=== PATIENT | male | born 1955 | race African-American/Black ===

== ENCOUNTER 2019-09-29 18:03 | Inpatient (IN) ==
[2019-09-29] MEDS ORDERED: cloNIDine 0.1 MG TABLET PO STA (18:45)
[2019-09-29 18:57] LABS: Basophils % 0.4 % (0.0-0.8); Eosinophils % 0.1 % (0.00-10.9); Hematocrit 47.5 VOL% (42.0-52.0); Hemoglobin 15.5 GM/DL (14.0-18.0); Immature Granulocytes % 0.3 %; Immature Granulocytes Absolute 0.02 #; Lymphocytes # 1.3 10*3/uL (1.4-4.0); Lymphocytes % 16.4 % (21.2-54.2); Mean Corpuscular HGB Conc 32.6 GM/DL (32-36); Mean Corpuscular Volume 87.2 FL (87-102); Mean Platelet Volume 9.6 FL (9.6-12.0); Monocytes % 7.1 % (1.7-12.7); Neutrophils % 75.7 % (38.7-73.9); Platelet Count 163 T/CUMM (130-400); Red Blood Count 5.45 MC/CUMM (3.8-5.5); Red Cell Distribution Width 12.8 % (9.3-17.3); White Blood Count 7.8 T/CUMM (4-12)
[2019-09-29 19:22] LABS: Alanine Aminotransferase 31 U/L (16-61); Albumin 3.3 G/DL (3.4-5.0); Alkaline Phosphatase 74 U/L (45-117); Aspartate Amino Transferase 28 U/L (0-37); Blood Urea Nitrogen 29 MG/DL (7-18); Calcium 9.4 MG/DL (8.5-10.1); Estimated Glom Filtration Rate 95 ML/MIN; Glucose 157 MG/DL (74-106); Osmolality,Calculated 291.1 MOS/KG (273-304); Total Protein 8.5 G/DL (6.4-8.3)
[2019-09-29] MEDS ORDERED: SODIUM CHLORIDE 0.9% 1,000 ML IV STA (20:20)
[2019-09-29] MEDS ORDERED: ADENOSINE 6 MG/2 ML VIAL ONE ×2 (20:30→20:33)
[2019-09-29] MEDS ORDERED: dilTIAZem Drip 125 MG/125 ML PREMIX IV ONE (20:35)
[2019-09-29] MEDS ORDERED: DILTIAZEM 50 MG/10 ML VIAL IV ONE (20:36)
[2019-09-29] MEDS: dilTIAZem Drip 125 MG/125 ML PREMIX IV SCH (20:39)
[2019-09-29] MEDS ORDERED: ADENOSINE 6 MG/2 ML VIAL IV STA ×2 (20:43)
[2019-09-29] MEDS ORDERED: DILTIAZEM 50 MG/10 ML VIAL IV STA (20:43)
[2019-09-29 21:17] LABS: Apearance,Urine Slightly Hazy (Clear); Bacteria,Urine Occasional /HPF (Few); Bilirubin,Urine Small mg/dL (Negative); Blood, Urine Small mg/dL (Negative); Glucose,Urine (UA) Negative (Negative); Granular Casts,Urine 1 /LPF (0-1); Hyaline Casts,Urine 3 /LPF (0-3); Ketones,Urine 20 mg/dL (Negative); Mucus,Urine Few /LPF (Occasional); Nitrite,Urine Negative (Negative); Protein,Urine 100 MG/DL; RBC,Urine 3 /HPF (0-4); Squamous Epithelial Cell,Urine Occasional /HPF (0-10); Urine Color Amber (Yellow); Urine Specific Gravity 1.031 (1.001-1.035); WBC,Urine 3 /HPF (0-6)
[2019-09-29 21:19] LABS: Barbiturates Screen,Urine Negative (Negative); Benzodiazepines Screen,Urine Negative (Negative); Cannabinoid Screen,Urine Negative (Negative); Opiate Screen,Urine Negative (Negative); Phencyclidine Screen,Urine Negative (Negative)
[2019-09-29 21:21] LABS: INR 1.2; PT Patient Result 12.3 SECS (9.8-11.9); Partial Thromboplastin Time 25.7 SECS (23.9-33.8)
[2019-09-29 21:26] LABS: CKMB % 2.3 %
[2019-09-30] MEDS ORDERED: DEXTROSE 50% 25 GM/50 ML SYRINGE IV PRN (02:12)
[2019-09-30] MEDS ORDERED: SODIUM CHLORIDE 0.9% 1,000 ML IV SCH (02:12)
[2019-09-30] MEDS ORDERED: ONDANSETRON 4 MG/2 ML VIAL IV PRN (02:12)
[2019-09-30] MEDS ORDERED: DOCUSATE SODIUM 100 MG CAPSULE PO PRN (02:12)
[2019-09-30] MEDS ORDERED: ACETAMINOPHEN 325 MG TABLET PO PRN (02:12)
[2019-09-30] MEDS ORDERED: GLUCAGON 1 MG VIAL IM PRN (02:12)
[2019-09-30] MEDS ORDERED: HEPARIN 5,000 UNIT/1 ML VIAL IV ONE (03:00)
[2019-09-30] MEDS: INSULIN LISPRO 100 UNIT/ML SUBCUT SCH ×4 (03:41→22:35)
[2019-09-30] MEDS: HEPARIN DRIP 25,000 UNITS/500 ML PREMIX IV SCH ×2 (04:37→19:39)
[2019-09-30 05:28] LABS: Basophils % 0.2 % (0.0-0.8); Eosinophils % 0.3 % (0.00-10.9); Hematocrit 46.1 VOL% (42.0-52.0); Hemoglobin 15.3 GM/DL (14.0-18.0); Immature Granulocytes % 0.3 %; Immature Granulocytes Absolute 0.02 #; Lymphocytes # 1.6 10*3/uL (1.4-4.0); Lymphocytes % 26.3 % (21.2-54.2); Mean Corpuscular HGB Conc 33.2 GM/DL (32-36); Mean Corpuscular Volume 87.6 FL (87-102); Mean Platelet Volume 10.6 FL (9.6-12.0); Monocytes % 6.7 % (1.7-12.7); Neutrophils % 66.2 % (38.7-73.9); Platelet Count 163 T/CUMM (130-400); Red Blood Count 5.26 MC/CUMM (3.8-5.5); White Blood Count 6.2 T/CUMM (4-12)
[2019-09-30 05:56] LABS: CKMB % 2.9 %
[2019-09-30 06:00] LABS: Troponin I 0.721 NG/ML (0.00-0.045)
[2019-09-30] MEDS ORDERED: ENOXAPARIN 40 MG/0.4 ML SYRINGE SUBCUT SCH (06:00)
[2019-09-30 06:50] LABS: Osmolality,Calculated 291.8 MOS/KG (273-304)
[2019-09-30 09:36] LABS: Troponin I 0.594 NG/ML (0.00-0.045)
[2019-10-01] MEDS: HEPARIN DRIP 25,000 UNITS/500 ML PREMIX IV SCH (03:00)
[2019-10-01 06:22] LABS: Basophils % 0.3 % (0.0-0.8); Eosinophils % 0.7 % (0.00-10.9); Hemoglobin 13.5 GM/DL (14.0-18.0); Immature Granulocytes % 0.2 %; Immature Granulocytes Absolute 0.01 #; Lymphocytes # 2.1 10*3/uL (1.4-4.0); Lymphocytes % 36.6 % (21.2-54.2); Mean Corpuscular HGB Conc 32.9 GM/DL (32-36); Mean Corpuscular Volume 87.2 FL (87-102); Mean Platelet Volume 10.4 FL (9.6-12.0); Monocytes % 7.7 % (1.7-12.7); Neutrophils % 54.5 % (38.7-73.9); Platelet Count 158 T/CUMM (130-400); Red Cell Distribution Width 12.6 % (9.3-17.3); White Blood Count 5.8 T/CUMM (4-12)
[2019-10-01 06:49] LABS: Calcium 8.5 MG/DL (8.5-10.1); Osmolality,Calculated 288.8 MOS/KG (273-304)
[2019-10-01] MEDS: INSULIN LISPRO 100 UNIT/ML SUBCUT SCH ×4 (07:47→20:20)
[2019-10-01 09:18] LABS: Immunoglobulin A (Chem) 336 MG/DL (70-400); Immunoglobulin G (Chem) 1960 MG/DL (700-1600); Immunoglobulin M (Chem) 86 MG/DL (40-230)
[2019-10-01 09:30] LABS: Total Volume,Urine 500 ML (400-2000)
[2019-10-01] MEDS: dilTIAZem Drip 125 MG/125 ML PREMIX IV SCH ×2 (09:31→20:19)
[2019-10-01 09:50] LABS: Total Protein 24 Hr Ur Result 240 MG/24HR (0-149.1)
[2019-10-02 05:33] LABS: Basophils % 0.2 % (0.0-0.8); Eosinophils # 0.1 10*3/uL (0.0-0.87); Eosinophils % 1.8 % (0.00-10.9); Hematocrit 41.8 VOL% (42.0-52.0); Hemoglobin 13.4 GM/DL (14.0-18.0); Immature Granulocytes % 0.2 %; Immature Granulocytes Absolute 0.01 #; Lymphocytes # 1.6 10*3/uL (1.4-4.0); Lymphocytes % 32.4 % (21.2-54.2); Mean Corpuscular HGB Conc 32.1 GM/DL (32-36); Mean Corpuscular Volume 89.7 FL (87-102); Mean Platelet Volume 10.4 FL (9.6-12.0); Monocytes % 8.6 % (1.7-12.7); Neutrophils % 56.8 % (38.7-73.9); Platelet Count 165 T/CUMM (130-400); Red Blood Count 4.66 MC/CUMM (3.8-5.5); Red Cell Distribution Width 12.5 % (9.3-17.3)
[2019-10-02] MEDS: HEPARIN DRIP 25,000 UNITS/500 ML PREMIX IV SCH (05:48)
[2019-10-02 05:58] LABS: Calcium 8.3 MG/DL (8.5-10.1); Osmolality,Calculated 287.8 MOS/KG (273-304)
[2019-10-02 06:06] LABS: 24 Hr Protein (Bench) 240 MG/24HR (0-149.1)
[2019-10-02 09:04] LABS: Albumin (SPE) 4.4 G/DL (3.2-5.3); Alpha 1 (SPE) 0.2 G/DL (0.1-0.4); Alpha 1 (SPE) Rel % 2.3 %; Alpha 2 (SPE) 0.8 G/DL (0.4-1.0); Alpha 2 (SPE) Rel % 10.1 %; Beta (SPE) 0.9 G/DL (0.5-1.1)
[2019-10-02 09:09] LABS: Albumin (SPE) Rel % 54.8 %
[2019-10-02 09:10] LABS: Beta (SPE) Rel % 11.2 %; Gamma (SPE) 1.7 G/DL (0.7-1.7); Gamma (SPE) Rel % 21.6 %
[2019-10-02] MEDS: INSULIN LISPRO 100 UNIT/ML SUBCUT SCH ×4 (11:14→20:24)
[2019-10-02] MEDS: DEXTROSE 5% NACL 0.45% 1,000 ML IV SCH (11:14)
[2019-10-02] MEDS: POTASSIUM CHLORIDE RIDER 10 MEQ in PREMIX 1 EACH IV PRN ×3 (11:15→13:22)
[2019-10-02] MEDS: dilTIAZem Drip 125 MG/125 ML PREMIX IV SCH (19:59)
[2019-10-02] MEDS: PANTOPRAZOLE 40 MG VIAL IV SCH (20:23)
[2019-10-02] MEDS: ATORVASTATIN 80 MG TABLET PO SCH (20:24)
[2019-10-03] MEDS: HEPARIN DRIP 25,000 UNITS/500 ML PREMIX IV SCH ×2 (01:20→23:04)
[2019-10-03] MEDS: DEXTROSE 5% NACL 0.45% 1,000 ML IV SCH ×2 (02:31→16:51)
[2019-10-03 06:32] LABS: Basophils % 0.4 % (0.0-0.8); Eosinophils # 0.1 10*3/uL (0.0-0.87); Immature Granulocytes % 0.2 %; Immature Granulocytes Absolute 0.01 #; Lymphocytes # 1.7 10*3/uL (1.4-4.0); Lymphocytes % 36.3 % (21.2-54.2); Mean Corpuscular HGB Conc 31.7 GM/DL (32-36); Mean Corpuscular Volume 89.5 FL (87-102); Mean Platelet Volume 10.5 FL (9.6-12.0); Monocytes % 8.1 % (1.7-12.7); Platelet Count 174 T/CUMM (130-400); Red Blood Count 4.58 MC/CUMM (3.8-5.5); Red Cell Distribution Width 12.6 % (9.3-17.3); White Blood Count 4.6 T/CUMM (4-12)
[2019-10-03 06:57] LABS: Calcium 8.3 MG/DL (8.5-10.1); Osmolality,Calculated 283.3 MOS/KG (273-304)
[2019-10-03 07:06] LABS: Albumin 2.4 G/DL (3.4-5.0); Bilirubin,Total 1.4 MG/DL (0.2-1.0); Calcium 8.4 MG/DL (8.5-10.1); Osmolality,Calculated 285.1 MOS/KG (273-304); Prealbumin 8.4 MG/DL (20-40); Total Protein 6.9 G/DL (6.4-8.3)
[2019-10-03] MEDS: INSULIN LISPRO 100 UNIT/ML SUBCUT SCH ×4 (09:22→23:56)
[2019-10-03] MEDS: PANTOPRAZOLE 40 MG VIAL IV SCH ×2 (10:56→22:28)
[2019-10-03] MEDS: ASPIRIN EC 81 MG TABLET PO SCH (11:11)
[2019-10-03] MEDS ORDERED: DIVALPROEX ER 500 MG TABLET PO SCH ×2 (21:00)
[2019-10-03] MEDS ORDERED: risperiDONE 1 MG TABLET PO SCH (21:00)
[2019-10-03] MEDS: ATORVASTATIN 80 MG TABLET PO SCH (22:27)
[2019-10-03] MEDS: VALPROIC ACID 250 MG/5 ML UDCUP PO SCH (22:27)
[2019-10-03] MEDS: risperiDONE 1 MG TABLET PO SCH (22:28)
[2019-10-04 02:42] LABS: Basophils % 0.4 % (0.0-0.8); Eosinophils # 0.1 10*3/uL (0.0-0.87); Hematocrit 39.5 VOL% (42.0-52.0); Hemoglobin 12.9 GM/DL (14.0-18.0); Immature Granulocytes % 0.2 %; Immature Granulocytes Absolute 0.01 #; Lymphocytes # 1.8 10*3/uL (1.4-4.0); Lymphocytes % 36.7 % (21.2-54.2); Mean Corpuscular HGB Conc 32.7 GM/DL (32-36); Mean Corpuscular Volume 88.4 FL (87-102); Mean Platelet Volume 10.2 FL (9.6-12.0); Monocytes % 6.4 % (1.7-12.7); Neutrophils % 55.3 % (38.7-73.9); Platelet Count 166 T/CUMM (130-400); Red Blood Count 4.47 MC/CUMM (3.8-5.5); Red Cell Distribution Width 12.3 % (9.3-17.3)
[2019-10-04 02:59] LABS: Osmolality,Calculated 285.4 MOS/KG (273-304)
[2019-10-04] MEDS: HEPARIN DRIP 25,000 UNITS/500 ML PREMIX IV SCH (05:04)
[2019-10-04] MEDS: VALPROIC ACID 250 MG/5 ML UDCUP PO SCH ×4 (05:15→22:27)
[2019-10-04] MEDS: POTASSIUM CHLORIDE RIDER 10 MEQ in PREMIX 1 EACH IV PRN ×2 (05:35→06:33)
[2019-10-04] MEDS: DEXTROSE 5% NACL 0.45% 1,000 ML IV SCH ×2 (05:55→22:26)
[2019-10-04] MEDS: dilTIAZem Drip 125 MG/125 ML PREMIX IV SCH (07:32)
[2019-10-04] MEDS ORDERED: POTASSIUM CHLORIDE 20 MEQ/15 ML UDCUP PO ONE (07:59)
[2019-10-04] MEDS: INSULIN LISPRO 100 UNIT/ML SUBCUT SCH ×3 (09:36→16:33)
[2019-10-04] MEDS: PANTOPRAZOLE 40 MG VIAL IV SCH ×2 (09:36→22:29)
[2019-10-04] MEDS: ASPIRIN EC 81 MG TABLET PO SCH (09:36)
[2019-10-04] MEDS ORDERED: HEPARIN DRIP 25,000 UNITS/500 ML PREMIX IV SCH ×2 (13:00→13:30)
[2019-10-04] MEDS: DILTIAZEM 30 MG TABLET PO SCH ×2 (15:16→22:29)
[2019-10-04] MEDS ORDERED: RIVAROXABAN 15 MG TABLET NG SCH (17:00)
[2019-10-04] MEDS: risperiDONE 1 MG TABLET PO SCH (22:27)
[2019-10-04] MEDS: ATORVASTATIN 80 MG TABLET PO SCH (22:28)
[2019-10-04] MEDS: ASCORBIC ACID 500 MG TABLET NG SCH (22:28)
[2019-10-05] MEDS: VALPROIC ACID 250 MG/5 ML UDCUP PO SCH ×4 (04:22→21:18)
[2019-10-05] MEDS: INSULIN LISPRO 100 UNIT/ML SUBCUT SCH ×5 (04:29→20:39)
[2019-10-05 06:45] LABS: Basophils % 0.2 % (0.0-0.8); Eosinophils # 0.1 10*3/uL (0.0-0.87); Eosinophils % 0.6 % (0.00-10.9); Hematocrit 39.9 VOL% (42.0-52.0); Hemoglobin 13.1 GM/DL (14.0-18.0); Immature Granulocytes % 0.4 %; Immature Granulocytes Absolute 0.03 #; Lymphocytes # 1.4 10*3/uL (1.4-4.0); Lymphocytes % 17.8 % (21.2-54.2); Mean Corpuscular HGB Conc 32.8 GM/DL (32-36); Mean Corpuscular Volume 87.1 FL (87-102); Mean Platelet Volume 11.3 FL (9.6-12.0); Monocytes % 7.9 % (1.7-12.7); Neutrophils % 73.1 % (38.7-73.9); Platelet Count 179 T/CUMM (130-400); Red Blood Count 4.58 MC/CUMM (3.8-5.5); Red Cell Distribution Width 12.4 % (9.3-17.3); White Blood Count 8.1 T/CUMM (4-12)
[2019-10-05 07:05] LABS: Calcium 8.3 MG/DL (8.5-10.1)
[2019-10-05] MEDS ORDERED: AZITHROMYCIN INJ 500 MG in SODIUM CHLORIDE 0.9% 250 ML IV ONE (08:20)
[2019-10-05] MEDS: DEXTROSE 5% NACL 0.45% 1,000 ML IV SCH ×2 (08:51→12:34)
[2019-10-05] MEDS: POTASSIUM CHLORIDE RIDER 10 MEQ in PREMIX 1 EACH IV PRN ×3 (08:52→11:03)
[2019-10-05] MEDS: cefTRIAXone 1,000 MG in SYRINGE 1 EACH IV SCH (08:55)
[2019-10-05] MEDS ORDERED: LIDOCAINE 2% 5 ML VIAL ONE (09:00)
[2019-10-05] MEDS ORDERED: ETOMIDATE 20 MG/10 ML VIAL IV ONE (09:00)
[2019-10-05] MEDS ORDERED: propofoL 200 MG/20 ML VIAL IV ONE (09:00)
[2019-10-05] MEDS ORDERED: ESMOLOL 100 MG/10 ML VIAL IV ONE (09:00)
[2019-10-05] MEDS: PANTOPRAZOLE 40 MG VIAL IV SCH ×2 (10:02→20:37)
[2019-10-05] MEDS: ASPIRIN EC 81 MG TABLET PO SCH (10:03)
[2019-10-05] MEDS: ASCORBIC ACID 500 MG TABLET NG SCH ×2 (10:03→20:37)
[2019-10-05] MEDS: DILTIAZEM 30 MG TABLET PO SCH (10:05)
[2019-10-05] MEDS ORDERED: MAGNESIUM SULF RIDER 2 GM in PREMIX 1 EACH IV ONE (10:19)
[2019-10-05] MEDS: dilTIAZem Drip 125 MG/125 ML PREMIX IV SCH (11:26)
[2019-10-05] MEDS ORDERED: RACEPINEPHRINE 0.5 ML NEB RESP TX ONE (13:30)
[2019-10-05] MEDS ORDERED: KETAMINE 500 MG/10 ML VIAL ONE (13:41)
[2019-10-05] MEDS ORDERED: TUBERCULIN SKIN TEST 0.1 ML SYRINGE INTRADERM ONE (14:34)
[2019-10-05] MEDS: DILTIAZEM 60 MG TABLET PO SCH ×2 (15:12→20:36)
[2019-10-05] MEDS: risperiDONE 1 MG TABLET PO SCH (20:36)
[2019-10-05] MEDS: ATORVASTATIN 80 MG TABLET PO SCH (20:37)
[2019-10-06] MEDS: DEXTROSE 5% NACL 0.45% 1,000 ML IV SCH ×3 (00:40→13:55)
[2019-10-06] MEDS: VALPROIC ACID 250 MG/5 ML UDCUP PO SCH ×4 (03:56→21:15)
[2019-10-06 05:42] LABS: Basophils % 0.3 % (0.0-0.8); Eosinophils # 0.1 10*3/uL (0.0-0.87); Eosinophils % 0.8 % (0.00-10.9); Hemoglobin 12.2 GM/DL (14.0-18.0); Immature Granulocytes % 0.5 %; Immature Granulocytes Absolute 0.04 #; Lymphocytes # 1.2 10*3/uL (1.4-4.0); Lymphocytes % 15.3 % (21.2-54.2); Mean Corpuscular HGB Conc 32.1 GM/DL (32-36); Mean Corpuscular Volume 89.2 FL (87-102); Mean Platelet Volume 10.4 FL (9.6-12.0); Neutrophils % 77.1 % (38.7-73.9); Platelet Count 165 T/CUMM (130-400); Red Blood Count 4.26 MC/CUMM (3.8-5.5); Red Cell Distribution Width 12.6 % (9.3-17.3); White Blood Count 7.9 T/CUMM (4-12)
[2019-10-06 06:17] LABS: Osmolality,Calculated 272.1 MOS/KG (273-304)
[2019-10-06 06:19] LABS: Prealbumin 5.5 MG/DL (20-40)
[2019-10-06] MEDS: INSULIN LISPRO 100 UNIT/ML SUBCUT SCH ×4 (08:32→21:14)
[2019-10-06] MEDS: PANTOPRAZOLE 40 MG VIAL IV SCH ×2 (08:55→21:14)
[2019-10-06] MEDS: AZITHROMYCIN INJ 250 MG in SODIUM CHLORIDE 0.9% 150 ML IV SCH (08:56)
[2019-10-06] MEDS: cefTRIAXone 1,000 MG in SYRINGE 1 EACH IV SCH (08:56)
[2019-10-06] MEDS: DILTIAZEM 60 MG TABLET PO SCH ×3 (08:57→21:13)
[2019-10-06] MEDS: ASCORBIC ACID 500 MG TABLET NG SCH ×2 (08:57→21:14)
[2019-10-06] MEDS: ASPIRIN EC 81 MG TABLET PO SCH (08:58)
[2019-10-06] MEDS: APIXABAN 5 MG TABLET PO SCH (13:21)
[2019-10-06] MEDS: risperiDONE 1 MG TABLET PO SCH (21:14)
[2019-10-06] MEDS: ATORVASTATIN 80 MG TABLET PO SCH (21:14)
[2019-10-07] MEDS: DEXTROSE 5% NACL 0.45% 1,000 ML IV SCH ×2 (03:29→16:08)
[2019-10-07] MEDS: VALPROIC ACID 250 MG/5 ML UDCUP PO SCH ×4 (04:44→21:13)
[2019-10-07] MEDS: INSULIN LISPRO 100 UNIT/ML SUBCUT SCH ×4 (09:03→21:15)
[2019-10-07] MEDS: cefTRIAXone 1,000 MG in SYRINGE 1 EACH IV SCH (09:13)
[2019-10-07] MEDS: AZITHROMYCIN INJ 250 MG in SODIUM CHLORIDE 0.9% 150 ML IV SCH (09:13)
[2019-10-07] MEDS: ASCORBIC ACID 500 MG TABLET NG SCH ×2 (09:14→21:14)
[2019-10-07] MEDS: PANTOPRAZOLE 40 MG VIAL IV SCH ×2 (09:14→21:13)
[2019-10-07] MEDS: APIXABAN 5 MG TABLET PO SCH ×2 (09:14→21:14)
[2019-10-07] MEDS: DILTIAZEM 60 MG TABLET PO SCH ×3 (09:15→21:14)
[2019-10-07] MEDS: ASPIRIN EC 81 MG TABLET PO SCH (09:15)
[2019-10-07 11:35] LABS: Basophils % 0.3 % (0.0-0.8); Eosinophils # 0.1 10*3/uL (0.0-0.87); Hematocrit 35.7 VOL% (42.0-52.0); Hemoglobin 11.5 GM/DL (14.0-18.0); Immature Granulocytes % 0.2 %; Immature Granulocytes Absolute 0.01 #; Lymphocytes # 1.1 10*3/uL (1.4-4.0); Lymphocytes % 18.5 % (21.2-54.2); Mean Corpuscular HGB Conc 32.2 GM/DL (32-36); Mean Corpuscular Volume 90.6 FL (87-102); Mean Platelet Volume 9.9 FL (9.6-12.0); Monocytes % 6.7 % (1.7-12.7); Neutrophils % 73.3 % (38.7-73.9); Platelet Count 170 T/CUMM (130-400); Red Blood Count 3.94 MC/CUMM (3.8-5.5); Red Cell Distribution Width 12.6 % (9.3-17.3); White Blood Count 5.9 T/CUMM (4-12)
[2019-10-07 11:54] LABS: Calcium 8.1 MG/DL (8.5-10.1); Osmolality,Calculated 272.1 MOS/KG (273-304)
[2019-10-07] MEDS: risperiDONE 1 MG TABLET PO SCH (21:13)
[2019-10-07] MEDS: ATORVASTATIN 80 MG TABLET PO SCH (21:14)
[2019-10-08] MEDS: VALPROIC ACID 250 MG/5 ML UDCUP PO SCH ×4 (04:10→21:10)
[2019-10-08] MEDS: DEXTROSE 5% NACL 0.45% 1,000 ML IV SCH ×2 (04:11→21:36)
[2019-10-08 05:44] LABS: Basophils % 0.2 % (0.0-0.8); Eosinophils # 0.1 10*3/uL (0.0-0.87); Eosinophils % 1.4 % (0.00-10.9); Hematocrit 36.3 VOL% (42.0-52.0); Hemoglobin 11.5 GM/DL (14.0-18.0); Immature Granulocytes % 0.2 %; Immature Granulocytes Absolute 0.01 #; Lymphocytes # 1.4 10*3/uL (1.4-4.0); Lymphocytes % 27.6 % (21.2-54.2); Mean Corpuscular HGB Conc 31.7 GM/DL (32-36); Mean Corpuscular Volume 90.3 FL (87-102); Mean Platelet Volume 10.8 FL (9.6-12.0); Monocytes % 8.8 % (1.7-12.7); Neutrophils % 61.8 % (38.7-73.9); Platelet Count 205 T/CUMM (130-400); Red Blood Count 4.02 MC/CUMM (3.8-5.5); Red Cell Distribution Width 12.5 % (9.3-17.3)
[2019-10-08 06:11] LABS: Hypochromasia 1+
[2019-10-08 06:12] LABS: Microcytosis Slight; Platelet Estimate Normal
[2019-10-08 06:15] LABS: Osmolality,Calculated 269.1 MOS/KG (273-304); Prealbumin 6.9 MG/DL (20-40)
[2019-10-08] MEDS: lisinopriL 5 MG TABLET PO SCH (10:24)
[2019-10-08] MEDS: ASCORBIC ACID 500 MG TABLET NG SCH ×2 (10:24→21:10)
[2019-10-08] MEDS: AZITHROMYCIN INJ 250 MG in SODIUM CHLORIDE 0.9% 150 ML IV SCH (10:24)
[2019-10-08] MEDS: DILTIAZEM CD 180 MG CAPSULE PO SCH (10:25)
[2019-10-08] MEDS: ASPIRIN EC 81 MG TABLET PO SCH (10:25)
[2019-10-08] MEDS: APIXABAN 5 MG TABLET PO SCH ×2 (10:25→21:09)
[2019-10-08] MEDS: PANTOPRAZOLE 40 MG VIAL IV SCH ×3 (10:25→21:38)
[2019-10-08] MEDS: cefTRIAXone 1,000 MG in SYRINGE 1 EACH IV SCH (10:26)
[2019-10-08] MEDS: INSULIN LISPRO 100 UNIT/ML SUBCUT SCH ×4 (10:26→21:09)
[2019-10-08] MEDS ORDERED: ZIPRASIDONE 20 MG/1 ML VIAL IM ONE (12:35)
[2019-10-08] MEDS: ATORVASTATIN 80 MG TABLET PO SCH (21:09)
[2019-10-08] MEDS: risperiDONE 1 MG TABLET PO SCH (21:10)
[2019-10-09] MEDS: VALPROIC ACID 250 MG/5 ML UDCUP PO SCH ×4 (04:38→22:09)
[2019-10-09 09:00] LABS: Basophils % 0.6 % (0.0-0.8); Eosinophils % 0.6 % (0.00-10.9); Hemoglobin 12.1 GM/DL (14.0-18.0); Immature Granulocytes % 0.2 %; Immature Granulocytes Absolute 0.01 #; Lymphocytes # 1.3 10*3/uL (1.4-4.0); Lymphocytes % 26.3 % (21.2-54.2); Mean Corpuscular HGB Conc 32.7 GM/DL (32-36); Mean Corpuscular Volume 88.7 FL (87-102); Mean Platelet Volume 10.2 FL (9.6-12.0); Monocytes % 11.6 % (1.7-12.7); Neutrophils % 60.7 % (38.7-73.9); Platelet Count 216 T/CUMM (130-400); Red Blood Count 4.17 MC/CUMM (3.8-5.5); Red Cell Distribution Width 12.5 % (9.3-17.3)
[2019-10-09] MEDS: INSULIN LISPRO 100 UNIT/ML SUBCUT SCH ×4 (09:13→22:08)
[2019-10-09] MEDS: PANTOPRAZOLE 40 MG VIAL IV SCH ×2 (09:15→22:08)
[2019-10-09] MEDS: cefTRIAXone 1,000 MG in SYRINGE 1 EACH IV SCH (09:17)
[2019-10-09 09:22] LABS: Hypochromasia 1+; Lymphocytes 27 % (20-55); Microcytosis Slight; Platelet Estimate Adequate; Segmented Neutrophils 63 % (50-85); Total Cells Counted 100
[2019-10-09 09:23] LABS: Calcium 8.6 MG/DL (8.5-10.1); Osmolality,Calculated 267.2 MOS/KG (273-304)
[2019-10-09] MEDS: APIXABAN 5 MG TABLET PO SCH ×2 (09:25→22:08)
[2019-10-09] MEDS: ASCORBIC ACID 500 MG TABLET NG SCH ×2 (09:25→22:09)
[2019-10-09] MEDS: DILTIAZEM CD 180 MG CAPSULE PO SCH (09:25)
[2019-10-09] MEDS: lisinopriL 5 MG TABLET PO SCH (09:25)
[2019-10-09] MEDS: ASPIRIN EC 81 MG TABLET PO SCH (09:25)
[2019-10-09] MEDS: DEXTROSE 5% NACL 0.45% 1,000 ML IV SCH (11:44)
[2019-10-09] MEDS ORDERED: LORazepam 2 MG/1 ML VIAL IV SCH (13:30)
[2019-10-09] MEDS ORDERED: LORazepam 2 MG/1 ML VIAL IV PRN (14:00)
[2019-10-09] MEDS: AZITHROMYCIN INJ 250 MG in SODIUM CHLORIDE 0.9% 150 ML IV SCH (14:14)
[2019-10-09] MEDS: ATORVASTATIN 80 MG TABLET PO SCH (22:08)
[2019-10-09] MEDS: risperiDONE 1 MG TABLET PO SCH (22:09)
[2019-10-10] MEDS: DEXTROSE 5% NACL 0.45% 1,000 ML IV SCH (00:04)
[2019-10-10] MEDS: VALPROIC ACID 250 MG/5 ML UDCUP PO SCH ×4 (03:40→21:29)
[2019-10-10 06:33] LABS: Basophils % 0.5 % (0.0-0.8); Eosinophils % 0.9 % (0.00-10.9); Hematocrit 37.6 VOL% (42.0-52.0); Hemoglobin 12.5 GM/DL (14.0-18.0); Immature Granulocytes % 0.5 %; Immature Granulocytes Absolute 0.02 #; Lymphocytes # 1.3 10*3/uL (1.4-4.0); Lymphocytes % 29.3 % (21.2-54.2); Mean Corpuscular HGB Conc 33.2 GM/DL (32-36); Mean Corpuscular Volume 85.8 FL (87-102); Mean Platelet Volume 9.7 FL (9.6-12.0); Monocytes % 10.8 % (1.7-12.7); Platelet Count 231 T/CUMM (130-400); Red Blood Count 4.38 MC/CUMM (3.8-5.5); Red Cell Distribution Width 12.2 % (9.3-17.3); White Blood Count 4.3 T/CUMM (4-12)
[2019-10-10 06:48] LABS: Calcium 8.9 MG/DL (8.5-10.1); Osmolality,Calculated 260.8 MOS/KG (273-304)
[2019-10-10 06:53] LABS: Band Neutrophils 1 % (0-10); Eosinophils 5 % (0-10); Lymphocytes 30 % (20-55); Segmented Neutrophils 55 % (50-85); Total Cells Counted 100
[2019-10-10 06:54] LABS: Hypochromasia 1+; Microcytosis Slight; Platelet Estimate Adequate
[2019-10-10] MEDS: INSULIN LISPRO 100 UNIT/ML SUBCUT SCH ×4 (08:48→21:30)
[2019-10-10] MEDS: lisinopriL 5 MG TABLET PO SCH (09:16)
[2019-10-10] MEDS: DILTIAZEM CD 180 MG CAPSULE PO SCH (09:17)
[2019-10-10] MEDS: APIXABAN 5 MG TABLET PO SCH ×2 (09:17→21:29)
[2019-10-10] MEDS: ASCORBIC ACID 500 MG TABLET NG SCH ×2 (09:17→21:29)
[2019-10-10] MEDS: PANTOPRAZOLE 40 MG VIAL IV SCH ×2 (09:18→21:29)
[2019-10-10] MEDS: ASPIRIN EC 81 MG TABLET PO SCH (09:18)
[2019-10-10] MEDS: risperiDONE 1 MG TABLET PO SCH (21:29)
[2019-10-10] MEDS: ATORVASTATIN 80 MG TABLET PO SCH (21:29)
[2019-10-11] MEDS: VALPROIC ACID 250 MG/5 ML UDCUP PO SCH ×4 (03:45→21:28)
[2019-10-11] MEDS: INSULIN LISPRO 100 UNIT/ML SUBCUT SCH ×4 (08:07→20:22)
[2019-10-11] MEDS: PANTOPRAZOLE 40 MG VIAL IV SCH ×2 (09:18→20:22)
[2019-10-11] MEDS: lisinopriL 5 MG TABLET PO SCH (09:18)
[2019-10-11] MEDS: ASCORBIC ACID 500 MG TABLET NG SCH ×2 (09:18→20:20)
[2019-10-11] MEDS: ASPIRIN EC 81 MG TABLET PO SCH (09:18)
[2019-10-11] MEDS: APIXABAN 5 MG TABLET PO SCH ×2 (09:18→20:19)
[2019-10-11] MEDS: DILTIAZEM CD 180 MG CAPSULE PO SCH (09:18)
[2019-10-11] MEDS ORDERED: HALOPERIDOL 5 MG/ML AMP IV PRN (15:37)
[2019-10-11] MEDS: ATORVASTATIN 80 MG TABLET PO SCH (20:21)
[2019-10-11] MEDS: risperiDONE 1 MG TABLET PO SCH (20:21)
[2019-10-12] MEDS: VALPROIC ACID 250 MG/5 ML UDCUP PO SCH ×3 (03:12→17:10)
[2019-10-12 05:37] LABS: Basophils % 0.4 % (0.0-0.8); Eosinophils % 0.9 % (0.00-10.9); Hematocrit 39.1 VOL% (42.0-52.0); Hemoglobin 13.3 GM/DL (14.0-18.0); Immature Granulocytes % 0.2 %; Immature Granulocytes Absolute 0.01 #; Lymphocytes # 1.7 10*3/uL (1.4-4.0); Lymphocytes % 36.7 % (21.2-54.2); Mean Platelet Volume 9.6 FL (9.6-12.0); Monocytes % 9.5 % (1.7-12.7); Neutrophils % 52.3 % (38.7-73.9); Platelet Count 256 T/CUMM (130-400); Red Cell Distribution Width 12.3 % (9.3-17.3); White Blood Count 4.6 T/CUMM (4-12)
[2019-10-12 05:56] LABS: Calcium 8.6 MG/DL (8.5-10.1); Osmolality,Calculated 262.8 MOS/KG (273-304)
[2019-10-12 06:01] LABS: Eosinophils 1 % (0-10); Hypochromasia 1+; Lymphocytes 45 % (20-55); Ovalocytes Slight; Platelet Estimate Adequate; Segmented Neutrophils 41 % (50-85); Total Cells Counted 100
[2019-10-12 06:02] LABS: Microcytosis Slight
[2019-10-12] MEDS: ASPIRIN EC 81 MG TABLET PO SCH (08:40)
[2019-10-12] MEDS: lisinopriL 5 MG TABLET PO SCH (08:40)
[2019-10-12] MEDS: APIXABAN 5 MG TABLET PO SCH (08:41)
[2019-10-12] MEDS: PANTOPRAZOLE 40 MG VIAL IV SCH (08:41)
[2019-10-12] MEDS: DILTIAZEM CD 180 MG CAPSULE PO SCH (08:41)
[2019-10-12] MEDS: INSULIN LISPRO 100 UNIT/ML SUBCUT SCH ×4 (08:42→23:52)
[2019-10-12] MEDS: ASCORBIC ACID 500 MG TABLET NG SCH (08:42)
[2019-10-13] MEDS: APIXABAN 5 MG TABLET PO SCH ×3 (02:11→21:50)
[2019-10-13] MEDS: risperiDONE 1 MG TABLET PO SCH ×2 (02:11→21:50)
[2019-10-13] MEDS: PANTOPRAZOLE 40 MG VIAL IV SCH ×3 (02:11→23:36)
[2019-10-13] MEDS: ATORVASTATIN 80 MG TABLET PO SCH ×2 (02:11→21:50)
[2019-10-13] MEDS: VALPROIC ACID 250 MG/5 ML UDCUP PO SCH ×5 (02:12→21:50)
[2019-10-13] MEDS: ASCORBIC ACID 500 MG TABLET NG SCH ×3 (02:12→21:50)
[2019-10-13 06:59] LABS: Calcium 8.6 MG/DL (8.5-10.1); Osmolality,Calculated 260.9 MOS/KG (273-304)
[2019-10-13] MEDS: INSULIN LISPRO 100 UNIT/ML SUBCUT SCH ×4 (08:32→21:50)
[2019-10-13] MEDS: lisinopriL 5 MG TABLET PO SCH (10:10)
[2019-10-13] MEDS: DILTIAZEM CD 180 MG CAPSULE PO SCH (10:10)
[2019-10-13] MEDS: ASPIRIN EC 81 MG TABLET PO SCH (10:10)
[2019-10-14] MEDS: VALPROIC ACID 250 MG/5 ML UDCUP PO SCH ×4 (05:17→22:59)
[2019-10-14 05:52] LABS: Basophils % 0.2 % (0.0-0.8); Hematocrit 38.4 VOL% (42.0-52.0); Hemoglobin 12.8 GM/DL (14.0-18.0); Immature Granulocytes % 0.2 %; Immature Granulocytes Absolute 0.01 #; Lymphocytes # 2.1 10*3/uL (1.4-4.0); Lymphocytes % 49.8 % (21.2-54.2); Mean Corpuscular HGB Conc 33.3 GM/DL (32-36); Mean Corpuscular Volume 86.9 FL (87-102); Mean Platelet Volume 9.2 FL (9.6-12.0); Monocytes % 10.3 % (1.7-12.7); Neutrophils % 38.5 % (38.7-73.9); Platelet Count 269 T/CUMM (130-400); Red Blood Count 4.42 MC/CUMM (3.8-5.5); Red Cell Distribution Width 12.2 % (9.3-17.3); White Blood Count 4.2 T/CUMM (4-12)
[2019-10-14 06:19] LABS: Calcium 7.9 MG/DL (8.5-10.1); Osmolality,Calculated 258.9 MOS/KG (273-304)
[2019-10-14 07:57] LABS: Anisocytosis 1+; Band Neutrophils 1 % (0-10); Eosinophils 1 % (0-10); Hypochromasia 2+; Lymphocytes 48 % (20-55); Microcytosis Slight; Polychromasia Slight; Segmented Neutrophils 41 % (50-85); Total Cells Counted 100
[2019-10-14 07:58] LABS: Macrocytosis Slight; Ovalocytes Few; Platelet Estimate Normal; Spherocytes Few
[2019-10-14] MEDS: ASCORBIC ACID 500 MG TABLET NG SCH ×2 (08:30→22:59)
[2019-10-14] MEDS: DILTIAZEM CD 180 MG CAPSULE PO SCH (08:30)
[2019-10-14] MEDS: lisinopriL 5 MG TABLET PO SCH (08:30)
[2019-10-14] MEDS: APIXABAN 5 MG TABLET PO SCH ×2 (08:30→22:58)
[2019-10-14] MEDS: ASPIRIN EC 81 MG TABLET PO SCH (08:30)
[2019-10-14] MEDS: INSULIN LISPRO 100 UNIT/ML SUBCUT SCH ×4 (09:35→22:58)
[2019-10-14] MEDS: PANTOPRAZOLE 40 MG VIAL IV SCH ×2 (09:41→23:04)
[2019-10-14] MEDS: ATORVASTATIN 80 MG TABLET PO SCH (22:59)
[2019-10-14] MEDS: PANTOPRAZOLE 40 MG TABLET PO SCH (22:59)
[2019-10-14] MEDS: risperiDONE 1 MG TABLET PO SCH (22:59)
[2019-10-15] MEDS: VALPROIC ACID 250 MG/5 ML UDCUP PO SCH ×2 (04:21→09:36)
[2019-10-15 05:41] LABS: Basophils % 0.4 % (0.0-0.8); Eosinophils # 0.1 10*3/uL (0.0-0.87); Eosinophils % 1.6 % (0.00-10.9); Hematocrit 36.5 VOL% (42.0-52.0); Hemoglobin 11.8 GM/DL (14.0-18.0); Immature Granulocytes % 0.4 %; Immature Granulocytes Absolute 0.02 #; Lymphocytes # 2.5 10*3/uL (1.4-4.0); Lymphocytes % 45.4 % (21.2-54.2); Mean Corpuscular HGB Conc 32.3 GM/DL (32-36); Mean Platelet Volume 9.1 FL (9.6-12.0); Monocytes % 8.9 % (1.7-12.7); Neutrophils % 43.3 % (38.7-73.9); Platelet Count 257 T/CUMM (130-400); Red Blood Count 4.15 MC/CUMM (3.8-5.5); Red Cell Distribution Width 12.3 % (9.3-17.3); White Blood Count 5.5 T/CUMM (4-12)
[2019-10-15 05:55] LABS: Calcium 7.9 MG/DL (8.5-10.1); Osmolality,Calculated 262.7 MOS/KG (273-304)
[2019-10-15 06:04] LABS: Band Neutrophils 1 % (0-10); Hypochromasia 1+; Lymphocytes 49 % (20-55); Microcytosis Slight; Segmented Neutrophils 42 % (50-85); Total Cells Counted 100
[2019-10-15 06:05] LABS: Atypical Lymphocytes Few; Ovalocytes Slight; Platelet Estimate Normal
[2019-10-15] MEDS: INSULIN LISPRO 100 UNIT/ML SUBCUT SCH (09:11)
[2019-10-15] MEDS: DILTIAZEM CD 180 MG CAPSULE PO SCH (09:35)
[2019-10-15] MEDS: APIXABAN 5 MG TABLET PO SCH (09:35)
[2019-10-15] MEDS: lisinopriL 5 MG TABLET PO SCH (09:36)
[2019-10-15] MEDS: PANTOPRAZOLE 40 MG TABLET PO SCH (09:36)
[2019-10-15] MEDS: ASPIRIN EC 81 MG TABLET PO SCH (09:36)
[2019-10-15] MEDS: ASCORBIC ACID 500 MG TABLET NG SCH (09:36)
[2019-10-15 10:40] VITALS: BP 123/64
[2019-10-26] MEDS ORDERED: RIVAROXABAN 20 MG TABLET PO SCH (17:00)
== END 2019-10-15 13:20 | DRG 45 ==
LOC: EDUNIT# → EDBD → N.ED 18:03 → SUATTDRO 09-30 00:22 → N.EDINP 09-30 00:22 → N.TELES 09-30 01:12
PROVIDERS: ADMIT Internal Medicine; ATTEND Internal Medicine Geriatric Medicine
PROC: EGDWPEG (ICD-10-PCS; 2019-10-05 06:35)

== ENCOUNTER 2020-02-16 14:36 | Inpatient (IN) ==
[2020-02-16] MEDS ORDERED: DEXTROSE 50% 25 GM/50 ML VIAL IV PRN ×2 (18:05→19:46)
[2020-02-16] MEDS ORDERED: GLUCAGON 1 MG VIAL IM PRN ×2 (18:05→19:46)
[2020-02-16 18:26] LABS: Basophils % 0.4 % (0.0-0.8); Eosinophils % 0.6 % (0.00-10.9); Hematocrit 34.1 VOL% (42.0-52.0); Hemoglobin 11.3 GM/DL (14.0-18.0); Immature Granulocytes % 0.6 %; Immature Granulocytes Absolute 0.03 #; Lymphocytes # 1.2 10*3/uL (1.4-4.0); Lymphocytes % 24.3 % (21.2-54.2); Mean Corpuscular HGB Conc 33.1 GM/DL (32-36); Mean Corpuscular Volume 89.3 FL (87-102); Mean Platelet Volume 8.1 FL (9.6-12.0); Monocytes % 6.2 % (1.7-12.7); Neutrophils % 67.9 % (38.7-73.9); Platelet Count 179 T/CUMM (130-400); Red Blood Count 3.82 MC/CUMM (3.8-5.5); Red Cell Distribution Width 13.6 % (9.3-17.3); White Blood Count 4.9 T/CUMM (4-12)
[2020-02-16 19:02] LABS: Albumin 2.2 G/DL (3.4-5.0); Bilirubin,Total 0.8 MG/DL (0.2-1.0); Calcium 8.2 MG/DL (8.5-10.1); Osmolality,Calculated 265.2 MOS/KG (273-304); Total Protein 5.9 G/DL (6.4-8.3)
[2020-02-16] MEDS ORDERED: MAGNESIUM SULF RIDER 2 GM in PREMIX 1 EACH IV PRN (19:46)
[2020-02-16] MEDS ORDERED: MAGNESIUM SULF RIDER 4 GM in PREMIX 1 EACH IV PRN (19:46)
[2020-02-16] MEDS ORDERED: ALBUTEROL/IPRATROPIUM 3 ML NEB RESP TX PRN (19:46)
[2020-02-16] MEDS: LEVOFLOXACIN INJ 750 MG in PREMIX 1 EACH IV SCH (21:27)
[2020-02-16] MEDS: DEXTROSE 5% KCL 20 MEQ 20 MEQ/1,000 ML BAG IV SCH (21:27)
[2020-02-16] MEDS: INSULIN LISPRO 100 UNIT/ML SUBCUT SCH (22:47)
[2020-02-17] MEDS: PIPERACILLIN/TAZOBACTAM 3,375 MG in SODIUM CHLORIDE 0.9% 100 ML IV SCH ×3 (02:57→17:02)
[2020-02-17 05:44] LABS: Basophils % 0.2 % (0.0-0.8); Eosinophils % 0.9 % (0.00-10.9); Hematocrit 30.9 VOL% (42.0-52.0); Hemoglobin 10.2 GM/DL (14.0-18.0); Immature Granulocytes % 0.5 %; Immature Granulocytes Absolute 0.02 #; Lymphocytes % 23.2 % (21.2-54.2); Mean Corpuscular Volume 88.8 FL (87-102); Mean Platelet Volume 8.3 FL (9.6-12.0); Monocytes % 6.5 % (1.7-12.7); Neutrophils % 68.7 % (38.7-73.9); Platelet Count 187 T/CUMM (130-400); Red Blood Count 3.48 MC/CUMM (3.8-5.5); Red Cell Distribution Width 13.5 % (9.3-17.3); White Blood Count 4.4 T/CUMM (4-12)
[2020-02-17 06:38] LABS: Calcium 8.2 MG/DL (8.5-10.1); Osmolality,Calculated 264.2 MOS/KG (273-304); Risk Ratio 1.64; Thyroid Stimulating Hormone 0.199 uIU/ml (0.358-3.74); VLDL CHOLESTEROL 10.2 MG/DL
[2020-02-17] MEDS: INSULIN LISPRO 100 UNIT/ML SUBCUT SCH ×3 (07:59→17:03)
[2020-02-17] MEDS: PANTOPRAZOLE 40 MG VIAL IV SCH (09:30)
[2020-02-17] MEDS: ENOXAPARIN 100 MG/ML SYRINGE SUBCUT SCH ×2 (12:23→22:50)
[2020-02-17] MEDS: POTASSIUM CHLORIDE RIDER 10 MEQ in PREMIX 1 EACH IV PRN ×3 (12:24→14:43)
[2020-02-17] MEDS: LEVOFLOXACIN INJ 750 MG in PREMIX 1 EACH IV SCH (21:24)
[2020-02-18] MEDS: DEXTROSE 5% KCL 20 MEQ 20 MEQ/1,000 ML BAG IV SCH ×2 (02:48→03:43)
[2020-02-18] MEDS: INSULIN LISPRO 100 UNIT/ML SUBCUT SCH ×5 (02:48→21:00)
[2020-02-18] MEDS: PIPERACILLIN/TAZOBACTAM 3,375 MG in SODIUM CHLORIDE 0.9% 100 ML IV SCH ×4 (02:53→23:46)
[2020-02-18 06:53] LABS: Basophils % 0.3 % (0.0-0.8); Eosinophils % 0.8 % (0.00-10.9); Hematocrit 34.3 VOL% (42.0-52.0); Hemoglobin 11.4 GM/DL (14.0-18.0); Immature Granulocytes % 0.8 %; Immature Granulocytes Absolute 0.03 #; Lymphocytes % 28.5 % (21.2-54.2); Mean Corpuscular HGB Conc 33.2 GM/DL (32-36); Mean Corpuscular Volume 87.9 FL (87-102); Mean Platelet Volume 8.5 FL (9.6-12.0); Monocytes % 8.3 % (1.7-12.7); Neutrophils % 61.3 % (38.7-73.9); Platelet Count 213 T/CUMM (130-400); Red Cell Distribution Width 13.4 % (9.3-17.3); White Blood Count 3.6 T/CUMM (4-12)
[2020-02-18 06:55] LABS: INR 1.1; PT Patient Result 11.7 SECS (9.8-11.9)
[2020-02-18 07:15] LABS: Calcium 8.4 MG/DL (8.5-10.1); Osmolality,Calculated 263.4 MOS/KG (273-304)
[2020-02-18 07:47] LABS: Hypochromasia 1+; Lymphocytes 32 % (20-55); Platelet Estimate Adequate; Segmented Neutrophils 62 % (50-85); Total Cells Counted 100
[2020-02-18 07:48] LABS: Burr Cells Slight; Ovalocytes Slight
[2020-02-18] MEDS: PANTOPRAZOLE 40 MG VIAL IV SCH (11:05)
[2020-02-18] MEDS: LEVOFLOXACIN INJ 750 MG in PREMIX 1 EACH IV SCH (20:58)
[2020-02-19] MEDS: INSULIN LISPRO 100 UNIT/ML SUBCUT SCH ×3 (09:29→18:20)
[2020-02-19] MEDS: DEXTROSE 5% KCL 20 MEQ 20 MEQ/1,000 ML BAG IV SCH (09:34)
[2020-02-19] MEDS: PANTOPRAZOLE 40 MG VIAL IV SCH (09:34)
[2020-02-19] MEDS: PIPERACILLIN/TAZOBACTAM 3,375 MG in SODIUM CHLORIDE 0.9% 100 ML IV SCH ×3 (09:35→23:03)
[2020-02-20] MEDS: INSULIN LISPRO 100 UNIT/ML SUBCUT SCH ×4 (04:19→18:40)
[2020-02-20 05:55] LABS: Basophils % 0.5 % (0.0-0.8); Eosinophils # 0.1 10*3/uL (0.0-0.87); Eosinophils % 1.2 % (0.00-10.9); Hematocrit 32.2 VOL% (42.0-52.0); Hemoglobin 10.7 GM/DL (14.0-18.0); Immature Granulocytes % 0.8 %; Immature Granulocytes Absolute 0.05 #; Lymphocytes # 2.1 10*3/uL (1.4-4.0); Lymphocytes % 35.3 % (21.2-54.2); Mean Corpuscular HGB Conc 33.2 GM/DL (32-36); Mean Corpuscular Volume 89.7 FL (87-102); Mean Platelet Volume 8.2 FL (9.6-12.0); Monocytes % 9.3 % (1.7-12.7); Neutrophils % 52.9 % (38.7-73.9); Platelet Count 202 T/CUMM (130-400); Red Blood Count 3.59 MC/CUMM (3.8-5.5); Red Cell Distribution Width 13.7 % (9.3-17.3)
[2020-02-20 06:33] LABS: Calcium 8.2 MG/DL (8.5-10.1); Osmolality,Calculated 272.7 MOS/KG (273-304)
[2020-02-20 07:18] LABS: Band Neutrophils 2 % (0-10); Hypochromasia Slight; Lymphocytes 34 % (20-55); Nucleated Red Blood Cells 3 (0-5); Platelet Estimate Normal; Segmented Neutrophils 54 % (50-85); Total Cells Counted 100
[2020-02-20] MEDS ORDERED: BUPIVACAINE MPF 0.25% 30 ML VIAL ONE (09:55)
[2020-02-20] MEDS ORDERED: LIDOCAINE 1% 5 ML VIAL ONE (09:56)
[2020-02-20] MEDS ORDERED: DEXAMETHASONE 4 MG/1 ML VIAL ONE ×2 (09:56→12:49)
[2020-02-20] MEDS ORDERED: LACTATED RINGERS 1,000 ML IV SCH (10:00)
[2020-02-20 12:38] LABS: Apearance,Urine CLEAR (Clear); Bacteria,Urine Occasional /HPF (Few); Bilirubin,Urine Negative (Negative); Blood, Urine Moderate mg/dL (Negative); Glucose,Urine (UA) Negative (Negative); Ketones,Urine Negative (Negative); Mucus,Urine Occasional /LPF (Occasional); Nitrite,Urine Negative (Negative); Protein,Urine Negative; RBC,Urine 2 /HPF (0-4); Squamous Epithelial Cell,Urine Occasional /HPF (0-10); Urine Color Yellow (Yellow); Urine Specific Gravity 1.004 (1.001-1.035)
[2020-02-20] MEDS ORDERED: SEVOFLURANE 1 UNIT/15 MINUTE INH ONE (12:48)
[2020-02-20] MEDS ORDERED: LIDOCAINE 2% 5 ML VIAL ONE (12:48)
[2020-02-20] MEDS ORDERED: propofoL 200 MG/20 ML VIAL IV ONE (12:48)
[2020-02-20] MEDS ORDERED: CALCIUM CHLORIDE 1,000 MG/10 ML VIAL IV ONE (12:48)
[2020-02-20] MEDS ORDERED: NEOSTIGMINE 10 MG/10 ML VIAL ONE (12:49)
[2020-02-20] MEDS ORDERED: PHENYLEPHRINE 1 MG/10 ML SYRINGE IV ONE (12:49)
[2020-02-20] MEDS ORDERED: ONDANSETRON 4 MG/2 ML VIAL ONE (12:49)
[2020-02-20] MEDS ORDERED: ACETAMINOPHEN 1,000 MG/100 ML VIAL IV ONE (12:49)
[2020-02-20] MEDS ORDERED: fentaNYL 100 MCG/2 ML VIAL ONE (12:49)
[2020-02-20] MEDS ORDERED: ePHEDrine 50 MG/ML VIAL ONE (12:49)
[2020-02-20] MEDS ORDERED: ROCURONIUM 100 MG/10 ML VIAL IV ONE (12:49)
[2020-02-20] MEDS ORDERED: GLYCOPYRROLATE 0.4 MG/2 ML VIAL ONE (12:49)
[2020-02-20] MEDS ORDERED: LACTATED RINGERS 1,000 ML IV ONE (12:50)
[2020-02-20] MEDS ORDERED: LACTATED RINGERS 500 ML IV ONE ×2 (13:16→14:13)
[2020-02-20] MEDS: PIPERACILLIN/TAZOBACTAM 3,375 MG in SODIUM CHLORIDE 0.9% 100 ML IV SCH ×2 (13:53→16:50)
[2020-02-20] MEDS: PANTOPRAZOLE 40 MG VIAL IV SCH (13:54)
[2020-02-20 14:09] LABS: Hematocrit 38.2 VOL% (42.0-52.0); Hemoglobin 12.1 GM/DL (14.0-18.0)
[2020-02-20] MEDS: DEXTROSE 5% KCL 20 MEQ 20 MEQ/1,000 ML BAG IV SCH (15:07)
[2020-02-20] MEDS ORDERED: MORPHINE 4 MG/1 ML VIAL IV ONE (22:50)
[2020-02-21] MEDS: PIPERACILLIN/TAZOBACTAM 3,375 MG in SODIUM CHLORIDE 0.9% 100 ML IV SCH ×4 (00:35→23:43)
[2020-02-21 05:36] LABS: Basophils % 0.2 % (0.0-0.8); Eosinophils % 0.1 % (0.00-10.9); Hematocrit 35.4 VOL% (42.0-52.0); Hemoglobin 11.9 GM/DL (14.0-18.0); Immature Granulocytes % 0.5 %; Immature Granulocytes Absolute 0.05 #; Lymphocytes # 1.5 10*3/uL (1.4-4.0); Lymphocytes % 14.3 % (21.2-54.2); Mean Corpuscular HGB Conc 33.6 GM/DL (32-36); Mean Corpuscular Volume 88.7 FL (87-102); Mean Platelet Volume 8.4 FL (9.6-12.0); Monocytes % 7.3 % (1.7-12.7); Neutrophils % 77.6 % (38.7-73.9); Platelet Count 223 T/CUMM (130-400); Red Blood Count 3.99 MC/CUMM (3.8-5.5); Red Cell Distribution Width 13.8 % (9.3-17.3); White Blood Count 10.2 T/CUMM (4-12)
[2020-02-21 06:09] LABS: Calcium 8.8 MG/DL (8.5-10.1); Osmolality,Calculated 269.1 MOS/KG (273-304)
[2020-02-21] MEDS: DEXTROSE 5% KCL 20 MEQ 20 MEQ/1,000 ML BAG IV SCH ×3 (07:46→12:50)
[2020-02-21] MEDS: INSULIN LISPRO 100 UNIT/ML SUBCUT SCH ×5 (07:48→23:43)
[2020-02-21] MEDS: PANTOPRAZOLE 40 MG VIAL IV SCH (08:43)
[2020-02-22] MEDS: DEXTROSE 5% KCL 20 MEQ 20 MEQ/1,000 ML BAG IV SCH ×3 (00:04→18:22)
[2020-02-22] MEDS ORDERED: MORPHINE 4 MG/1 ML VIAL IV ONE (00:53)
[2020-02-22] MEDS: INSULIN LISPRO 100 UNIT/ML SUBCUT SCH ×3 (05:58→18:38)
[2020-02-22 06:29] LABS: Calcium 8.4 MG/DL (8.5-10.1); Osmolality,Calculated 265.5 MOS/KG (273-304); Prealbumin 3.9 MG/DL (20-40)
[2020-02-22] MEDS: ASPIRIN EC 81 MG TABLET PO SCH (10:04)
[2020-02-22] MEDS: PANTOPRAZOLE 40 MG TABLET PO SCH ×2 (10:04→16:58)
[2020-02-22] MEDS: FERROUS SULFATE 325 MG TABLET PO SCH (10:04)
[2020-02-22] MEDS: CETIRIZINE 10 MG TABLET PO SCH (10:04)
[2020-02-22] MEDS: ASCORBIC ACID 500 MG TABLET NG SCH ×2 (10:04→21:41)
[2020-02-22] MEDS: ZINC SULFATE 220 MG CAPSULE PO SCH (10:04)
[2020-02-22] MEDS: DILTIAZEM CD 240 MG CAPSULE PO SCH (10:04)
[2020-02-22] MEDS: PIPERACILLIN/TAZOBACTAM 3,375 MG in SODIUM CHLORIDE 0.9% 100 ML IV SCH ×2 (10:05→16:58)
[2020-02-22] MEDS: APIXABAN 5 MG TABLET PO SCH ×2 (10:05→21:40)
[2020-02-22] MEDS: VALPROIC ACID 250 MG/5 ML UDCUP PO SCH ×3 (10:05→21:40)
[2020-02-22] MEDS ORDERED: ATORVASTATIN 80 MG TABLET PO SCH (21:00)
[2020-02-22] MEDS ORDERED: risperiDONE 1 MG TABLET PO SCH (21:00)
[2020-02-23] MEDS: INSULIN LISPRO 100 UNIT/ML SUBCUT SCH ×4 (01:00→18:11)
[2020-02-23] MEDS: PIPERACILLIN/TAZOBACTAM 3,375 MG in SODIUM CHLORIDE 0.9% 100 ML IV SCH ×2 (01:00→09:34)
[2020-02-23] MEDS: DEXTROSE 5% KCL 20 MEQ 20 MEQ/1,000 ML BAG IV SCH ×2 (04:37→13:41)
[2020-02-23] MEDS: VALPROIC ACID 250 MG/5 ML UDCUP PO SCH ×3 (04:40→15:16)
[2020-02-23] MEDS: CETIRIZINE 10 MG TABLET PO SCH (09:35)
[2020-02-23] MEDS: PANTOPRAZOLE 40 MG TABLET PO SCH ×2 (09:35→18:26)
[2020-02-23] MEDS: FERROUS SULFATE 325 MG TABLET PO SCH (09:36)
[2020-02-23] MEDS: APIXABAN 5 MG TABLET PO SCH (09:36)
[2020-02-23] MEDS: DILTIAZEM CD 240 MG CAPSULE PO SCH (09:36)
[2020-02-23] MEDS: ASPIRIN EC 81 MG TABLET PO SCH (09:36)
[2020-02-23] MEDS: ZINC SULFATE 220 MG CAPSULE PO SCH (09:36)
[2020-02-23] MEDS: ASCORBIC ACID 500 MG TABLET NG SCH (10:13)
[2020-02-23 19:31] VITALS: BP 112/68
== END 2020-02-23 20:05 | DRG 231 ==
LOC: N.3E 17:29 → SUATTDRO 17:29
PROVIDERS: ADMIT Internal Medicine; ATTEND Internal Medicine Geriatric Medicine